=== PATIENT | male | born 1975 | race Caucasian/White ===

== ENCOUNTER 2022-02-04 07:00 | Day surgery (SDC) | payer BC ==
[~2022-02-04] VITALS: Ht 175.3 cm; Wt 90.0 kg
[~2022-02-04 07:00] MED LIST: FAMO-63 PO; FEXO180T81 PO; HYDROmorphone 2 MG/ML INJ. IVP PRN; IBUP200C9 PO; IV RINGERS,LACTATED 1000ML 1,000 ML IV SCH; MORPHINE SULFATE 2 MG/ML INJ. IVP PRN; PROCHLORPERAZINE 10 MG/2 ML VIAL. IVP PRN; fentaNYL PF VIAL 100 MCG/2 ML VIAL IVP PRN
[2022-02-04] MEDS ORDERED: BUPIVACAINE-EPI 0.25% 30 ML VIAL KIT. ONE (07:12)
[2022-02-04] MEDS ORDERED: LIDOCAINE 2% PF 5 ML VIAL. ONE (07:19)
[2022-02-04] MEDS ORDERED: SEVOFLURANE 31 TO 60 MINUTES. IH ONE (07:19)
[2022-02-04] MEDS ORDERED: DEXAMETHASONE SOD PHOS 4 MG/ML VIAL ONE ×2 (07:19→09:15)
[2022-02-04] MEDS ORDERED: PROPOFOL 10 MG/ML (20ML) VIAL. IV ONE ×2 (07:19→08:01)
[2022-02-04] MEDS ORDERED: ONDANSETRON PF 4 MG/2 ML VIAL. ONE (07:19)
[2022-02-04] MEDS ORDERED: fentaNYL PF VIAL 100 MCG/2 ML VIAL ONE ×4 (07:26→09:57)
[2022-02-04 07:30] VITALS: BP 118/71
[2022-02-04] MEDS ORDERED: ROPIVacaine 0.5% PF 20 ML VIAL. ONE (07:56)
[2022-02-04] MEDS ORDERED: MIDAZOLAM HCL/PF 2 MG/2 ML VIAL. ONE (08:00)
--- NOTE | 2022-02-04 08:06 | HP ---
DATE OF SERVICE: 02/04/2022 ADMIT DATE: 02/04/2022 PREOP: The patient is a 46-year-old male who has had prior injuries playing basketball and sustained a significant injury to that left knee. Approximately 4 years ago, he had then evaluated with Dr. Bhat and at that time was noted on the MRI that he had a torn anterior cruciate ligament. He was doing a lot of jumping and was doing some things with his daughter's soccer team when he felt a popping type of sensation again, instability in the knee and continues with instability complaints at this point. This does cause swelling and intermittent pain to the medial aspect of the joint line, but the main issue for him at this point is instability of the left knee with activities. REVIEW OF SYSTEMS: Within normal limits other than his current musculoskeletal complaints. SURGICAL HISTORY: Appendectomy. FAMILY HISTORY: Multiple sclerosis. SOCIAL HISTORY: Minimal alcohol, no tobacco use. MEDICATIONS: Yessenia p.r.n. ALLERGIES: No known drug allergies. PHYSICAL EXAMINATION: Today he is alert and oriented x 3. His heart is of regular rate and rhythm. His abdomen is soft and nontender. His all lung cervantes are clear to auscultation. The knee is unstable in the anterior plane, but does have some definite endpoint. He has full extension, flexion up to 125 degrees today with no instability in the varus, valgus plane. There is some medial joint line tenderness. Mildly positive Apley's test, negative testing to the lateral compartment. No other abnormalities at this point. IMPRESSION: Anterior cruciate ligament injury, left knee. PLAN: At this time, I have talked with him about the risks, complications as well as benefits and expectations of left knee arthroscopy, possible meniscectomy, possible anterior cruciate ligament reconstruction, most likely with an allograft. Therefore, he understands the risks and benefits and wishes to proceed as soon as he talks with Anesthesia this morning. WENDY FIGUEROA: Yordy TID: [id number]
[2022-02-04] MEDS ORDERED: SEVOFLURANE > 120 MINUTES. IH ONE (08:25)
[2022-02-04] MEDS ORDERED: KETOROLAC 30 MG/ML VIAL. ONE (09:07)
--- NOTE | 2022-02-04 09:14 | PDOC4 ---
OPERATIVE NOTE Date: Date: February 04, 2022 Pre-Op Diagnosis: 1. 46-year-old male left knee ACL tear 2 left medial and lateral meniscus tear. Post-Op Diagnosis: 1. 46-year-old male left knee ACL tear 2. Left knee medial lateral meniscus meniscus tear 3. Status post left partial medial meniscectomy with ACL reconstruction utilizing allograft Procedure Performed: 1. Left knee arthroscopy with partial medial lateral meniscectomy and ACL reconstruction utilizing allograft Surgeon: Barber Anesthesia Type: General Blood Loss: 30 cc Specimans Obtained: None Complications: Patient tolerated the procedure well without any complications. Operative Note: See dictation. BETHANY MORAN February 04, 2022 09:14
[2022-02-04] MEDS ORDERED: OXYC5TAB88 PO (09:20)
[2022-02-04] MEDS ORDERED: ONDA4TAB12 PO (09:20)
[2022-02-04] MEDS ORDERED: ASPI325T8 PO (09:20)
--- NOTE | 2022-02-04 09:23 | DISCH ---
DISCHARGE INSTRUCTIONS Condition on Discharge Condition on Discharge: Stable Activity After Discharge Activity Instructions for Disc: Activity as tolerated, Avoid exertion Bathing Instructions: Shower-keep dressing dry Lifting Instructions after Dis: No heavy lifting, Do not lift >10 pounds Exercise Instruction after Dis: Walk 10 min, 3 x per day Driving Instructions after Dis: Do not drive (while taking narcotic pain meds) Weight Bearing Status after Di: Full weight bearing Diet after Discharge Diet after Discharge: Regular Wound Incision Care Wound/Incision Care: Ice to area for comfort, Change dressing (POD #3 keep covered w/ 4x4's, ABD marco a wrap) Community/Resources/Services Services at Discharge: Outpatient Therapy (Following ACL reconstruction protocol) Follow-Up Follow up with: Follow up with clinic in 1-2 weeks. Call to schedule [phone] Treatment/Equipment after DC Adaptive Equipment Issued: BETHANY Lezama February 04, 2022 09:23
[2022-02-04] MEDS ORDERED: oxyCODONE IR 5 MG TABLET ONE (09:58)
[2022-02-04] MEDS ORDERED: oxyCODONE IR 5 MG TABLET PO ONE (10:00)
--- NOTE | 2022-02-04 10:17 | OP ---
DATE OF SURGERY: 02/04/2022 PREOPERATIVE DIAGNOSES: Medial meniscal tear with ACL tear, left knee. POSTOPERATIVE DIAGNOSES: Medial meniscal tear, lateral meniscal tear and ACL tear, left knee. PROCEDURE: Left knee arthroscopy with partial medial meniscectomy, partial lateral meniscectomy, ACL reconstruction with allograft. SURGEON: Spencer Blandon Jr, DO. EDITOR NEWSPAPER: Shawn Esqueda. ANESTHESIA: General. COMPLICATIONS: None. ESTIMATED BLOOD LOSS: 30 mL. DESCRIPTION OF PROCEDURE: The patient was taken to the operative suite, given a general anesthetic. Left lower extremity was placed in a knee cain, prepped and draped in a sterile fashion. Inferomedial and inferolateral portals were established. Knee was insufflated with saline. Visualization of the patellofemoral joint, noted this to be intact and tracking appropriately with no chondral deficit at this point. Synovitis was noted. Therefore, synovectomy was completed. Upon entering the medial compartment, there were no loose bodies in the gutter and there were no loose bodies within the compartment itself; however, there was noted to be a very large tear of the medial meniscus from the posterior horn approximately 3-4 mm from the root all the way around to the mid substance of the meniscus. This was a large flap, the inner one-half. This was nonrepairable and appeared to be very chronic in nature. Therefore, using basket forceps and a shaver, a partial medial meniscectomy was undertaken. This was debrided back to a very stable tissue. There was some grade 1 and grade 2 changes on the femoral side of the joint as well as the tibial side of the joint, but nothing significant, nothing near grade 3. Therefore, after this was probed again and noted to be very stable within the compartment. Scope was then taken into the intercondylar region. The PCL was probed. The ACL had been torn off the lateral wall and was actually scarred down to the PCL. The scope was then taken into the lateral compartment. No loose bodies were noted; however, there was noted to be a centralized tears the inner one third. Therefore, a partial lateral meniscectomy was undertaken. This was debrided back to stable tissue and the remnant was probed and noted to be stable. Chondral surfaces were noted to be intact and stable at this point. Therefore, scope was taken into the intercondylar region and while the graft was being prepared on the back table, this was noted to be 9.5 mm in diameter graft. This was tensioned and then appropriately prepared. The remnant of the ACL was removed. The guide for the femoral tunnel was then placed in appropriate position. Given as approximately 2 mm back wall and then the good position, a small lateral incision was made through skin and subcutaneous tissues and down through the IT band. The guide was then placed down on to the lateral cortex of the femur and the retrodrill was then placed through. This was through the lateral cortex and into the intercondylar region was noted to be placed in good position. The FlipCutter was then used and was measured out to be 9.5 mm as the graft was measured and then this was retrodrilled for 25 almost 30 mm in tunnel. This was brought back into the joint. The excess bone was then removed using a shaver and then the FlipCutter was removed and replaced with a [place] wire and the stick. [place] wire was then grasped and then pulled out through the inferolateral portal and held upon itself with stat. After the remnants of the bone were removed in their entirety with the shaver, attention was then directed to the tibial side, the tibial guide was placed in the original position of the ACL. Using this as a guide, this was noted to be in good position. Therefore, another incision was made through skin and subcutaneous tissues down to the medial aspect of the tibial crest in appropriate position. The guide was then placed and then the drill was placed up into the intra-articular portion, capturing the RetroCutter. This was then noted to be captured appropriately and the tibial tunnel was performed. This was noted to be in good position and orientation. This was cleaned out using a shaver. Then, the sutures, which were already through the femoral side of the joint were then pulled down through the tibial side of the joint. The sutures were then exiting the lateral aspect of the femur, but the loop was inferior. The graft, which had been tensioned was then placed with the femoral button along with the sutures. This was pulled up through the tibial tunnel up into the femoral tunnel and then with the scope watched it penetrate the lateral aspect of the cortex and then as this button was noted to be flipped. This was then tensioned and noted to be very tight on the lateral cortex of the femur. Using the white sutures, this was tightened accordingly so that the graft could be placed up through the tibial tunnel and secured in the femoral tunnel. This was noted to be in good position and orientation within the femoral tunnel and nice and tight. The washer was then placed on the opposite end of the graft sutures and then these sutures were then tightened up so that in approximately 20-25 degrees of flexion of the knee. This was tightened appropriately. This was retightened on the femoral and tibial sides of the joint noted to be very stable and probing revealed this to be stable. This was then taken through multiple ranges of motion 0-100 degrees of flexion. After the cycling of this graft, this was retightened again and no significant movement was noted. Therefore, sutures were tied, both on the femoral and tibial side of the joint. The access was then cut. Superficial tissues and skin was reapproximated. Local was placed. Sterile dressing was applied. The patient was then taken from the operative bed to the postoperative bed, taken to the PACU in stable condition. JOSUE DR: Yordy TID: [id number]
[2022-02-04 12:00] VITALS: BP 124/70
== END 2022-02-04 12:20 | disposition home or self-care (01) ==
LOC: SURG 07:00
PROVIDERS: ATTEND Orthopaedic Surgery
DX: S83.242A Other tear of medial meniscus, current injury, left knee, initial encounter (principal); S83.282A Other tear of lateral meniscus, current injury, left knee, initial encounter; S83.512A Sprain of anterior cruciate ligament of left knee, initial encounter; K21.9 Gastro-esophageal reflux disease without esophagitis; Z79.82 Long term (current) use of aspirin; Z79.899 Other long term (current) drug therapy; Z98.890 Other specified postprocedural states; X58.XXXA Exposure to other specified factors, initial encounter; Y93.89 Activity, other specified; Y92.89 Other specified places as the place of occurrence of the external cause; Y99.8 Other external cause status
CPT/HCPCS: 29880; 29888; A4213; A4930; A6450; C1713; J0690; J1100; J1885; J2250; J2405; J2704; J2795; J3010